=== PATIENT | female | born 1990 | race African-American/Black ===

== ENCOUNTER 2023-07-18 02:16 | Emergency (ER) | payer MEDICAID ==
[~2023-07-18] VITALS: Ht 170.2 cm; Wt 113.0 kg
[2023-07-18 02:25] VITALS: O2SAT 99
[2023-07-18] MEDS ORDERED: MORPHINE SULFATE 4 MG/ML CPJ (NOT FOR IM USE) IV STA (03:54)
[2023-07-18] MEDS ORDERED: PANTOPRAZOLE SODIUM 40 MG/VIAL IV STA (03:54)
[2023-07-18] MEDS ORDERED: METOCLOPRAMIDE HCL 10MG/2ML VIAL IV STA (03:54)
[2023-07-18] MEDS ORDERED: ONDANSETRON HCL 4MG/2ML INJ IV STA (03:54)
[2023-07-18] MEDS ORDERED: SODIUM CHLORIDE 0.9% 1,000 ML IV ONE (04:00)
[2023-07-18 04:39] LABS: BASOPHILS % 0.6 % (0.0-2.0); HEMATOCRIT. 43.1 % (36.0-48.0); HEMOGLOBIN. 14.6 g/dL (12.0-16.0); LYMPHOCYTES % 13.6 % (20.0-50.0); MEAN CORPUSCULAR HGB CONC 33.9 g/dL (31.0-37.0); MEAN CORPUSCULAR VOLUME 94.6 fL (81.0-99.0); MEAN PLATELET VOLUME 8.6 fl (7.4-10.4); MONOCYTES % 2.5 % (2.0-8.0); NEUTROPHILS % 83.3 % (40.0-76.0); PLATELET 380 x1000/uL (130-400); RED BLOOD CELL COUNT 4.55 mill/uL (4.2-5.4); RED CELL DISTRIBUTION WIDTH 13.8 % (11.6-14.6); WHITE BLOOD COUNT 8.2 x1000/uL (4.5-11.0)
[2023-07-18 04:59] LABS: ALANINE AMINOTRANSFERASE 15 IU/L (10-49); ALBUMIN 4.2 g/dL (3.2-4.8); ASPARTATE AMINOTRANSFERASE 15 IU/L (<34); BILIRUBIN TOTAL 0.3 mg/dL (0.1-1.0); CARBON DIOXIDE 22 mEq/L (21-32); CHLORIDE 102 mEq/L (98-107); CREATININE 0.8 mg/dL (0.6-1.0); GLUCOSE 357 mg/dL (70-105); POTASSIUM 3.7 mEq/L (3.5-5.1); PROTEIN TOTAL 7.7 g/dL (6.0-8.3); SODIUM 136 mEq/L (136-145); UREA NITROGEN BLOOD 16 mg/dL (9-23)
[2023-07-18 05:02] LABS: HCG SCREEN NEGATIVE
[2023-07-18 05:51] LABS: ETHANOL BLOOD < 10 mg/dL (<10)
[2023-07-18 08:15] LABS: CALCIUM 8.9 mg/dL (8.7-10.4); CARBON DIOXIDE 28 mEq/L (21-32); CHLORIDE 103 mEq/L (98-107); CREATININE 0.9 mg/dL (0.6-1.0); GLUCOSE 306 mg/dL (70-105); POTASSIUM 4.7 mEq/L (3.5-5.1); SODIUM 138 mEq/L (136-145); UREA NITROGEN BLOOD 15 mg/dL (9-23)
[2023-07-18] MEDS ORDERED: ONDANSETRON HCL 4MG TABLET PO ONE (09:00)
[2023-07-18 09:33] VITALS: BP 159/68; PULSE 68; RESP 16; TEMP 98
== END 2023-07-18 09:36 | disposition home or self-care (01) ==
LOC: ER 02:19
DX: E11.65 Type 2 diabetes mellitus with hyperglycemia (principal); R11.2 Nausea with vomiting, unspecified; R10.9 Unspecified abdominal pain; Z88.8 Allergy status to other drugs, medicaments and biological substances
CPT/HCPCS: 80053; 80048; 80320; 84703; 83605; 83690; 85025; 36415; 71045; 74177; 96365; 96366; 96375; 99285; Q0162; J2765; J2405; C9113; J2270; J7030; G0480